=== PATIENT | female | born 1945 | race Caucasian/White ===

== ENCOUNTER → 2018-02-09 | Outpatient (CLI) | payer MEDICARE, OTHER | END | disposition home or self-care (01) | LOC: CFH 10:27 | PROVIDERS: ATTEND Nurse Practitioner Gerontology | DX: Z12.2 Encounter for screening for malignant neoplasm of respiratory organs (principal); I25.10 Atherosclerotic heart disease of native coronary artery without angina pectoris; J98.11 Atelectasis; F17.210 Nicotine dependence, cigarettes, uncomplicated | CPT/HCPCS: G0297 ==

== ENCOUNTER 2018-03-18 16:43 | Inpatient (IN) | payer MEDICARE ==
[~2018-03-18] VITALS: Ht 162.6 cm; Wt 55.0 kg
[2018-03-18] MEDS ORDERED: NITROGLYCERIN/D5W PMX 250 ML ONE (16:51)
[2018-03-18] MEDS ORDERED: NITROGLYCERIN/D5W PMX 250 ML IV PRN (17:00)
[2018-03-18 17:24] LABS: BASOPHILS # (AUTO) 0.02 x10^3/uL (0-0.1); BASOPHILS % (AUTO) 0 % (0-1); EOSINOPHILS # (AUTO) 0.08 x10^3/uL (0-0.4); EOSINOPHILS % (AUTO) 1 % (1-7); LYMPHOCYTES # (AUTO) 1.64 x10^3/uL (1-3.4); LYMPHOCYTES % (AUTO) 19 % (22-44); MD NO; MEAN CORPUSCULAR HEMOGLOBIN 31.5 pg (27.0-34.8); MEAN CORPUSCULAR HGB CONC 33.5 g/dL (32.4-35.8); MEAN CORPUSCULAR VOLUME 93.8 fL (80-100); MEAN PLATELET VOLUME 7.6 fL (7.4-10.4); MONOCYTES # (AUTO) 0.56 x10^3/uL (0.2-0.8); MONOCYTES % (AUTO) 6 % (2-9); NEUTROPHILS # (AUTO) 6.43 x10^3/uL (1.8-6.8); NEUTROPHILS % (AUTO) 74 % (42-75); PLATELET COUNT 271 x10^3/uL (130-400); RED BLOOD COUNT 3.97 x10^6/uL (3.82-5.3)
[2018-03-18] MEDS ORDERED: FUROSEMIDE 40 MG/4 ML IV ONE (17:30)
[2018-03-18 17:33] LABS: INTERNATIONAL NORMALIZED RATIO 1.04 (0.93-1.1); PROTHROMBIN TIME 10.7 Seconds (9.6-11.5)
[2018-03-18 17:37] LABS: ALANINE AMINOTRANSFERASE 28 U/L (12-78); ALBUMIN 3.5 g/dL (3.4-5.0); ANION GAP 8 mmol/L (5-15); CALCIUM 8.3 mg/dL (8.5-10.1); CHLORIDE 107 mmol/L (98-107); CREATININE 0.66 mg/dL (0.55-1.02)
[2018-03-18] MEDS ORDERED: FUROSEMIDE 40 MG/4 ML ONE (17:39)
[2018-03-18 17:41] LABS: ALKALINE PHOSPHATASE 76 U/L (45-117); BILIRUBIN,TOTAL 0.3 mg/dL (0.2-1.0); TOTAL PROTEIN 6.6 g/dL (6.4-8.2); TROPONIN I 0.041 ng/mL (0.000-0.045)
[2018-03-18] MEDS ORDERED: LOSA50TA6 PO (17:55)
[2018-03-18] MEDS ORDERED: DIAZ5TAB PO (17:55)
[2018-03-18] MEDS ORDERED: ACET325T14 PO (17:55)
[2018-03-18] MEDS ORDERED: HYDR-3237 PO (17:55)
[2018-03-18] MEDS ORDERED: hydrALAzine 20 MG/ML, 1ML IVPush PRN (19:00)
[2018-03-18] MEDS: NICOTINE 7 MG/24 HR PATCH.TD24 TD SCH (19:00)
[2018-03-18] MEDS ORDERED: ONDANSETRON ODT 4 MG PO PRN (19:00)
[2018-03-18] MEDS ORDERED: BISACODYL 10 MG SUPP PR PRN (19:00)
[2018-03-18] MEDS ORDERED: HEPARIN 5,000 UNITS/ML, 1ML SQ SCH (19:00)
[2018-03-18] MEDS ORDERED: POLYETHYLENE GLYCOL 17 GM PACKET PO PRN (19:00)
[2018-03-18] MEDS ORDERED: ACETAMINOPHEN 325 MG TABLET PO PRN (19:00)
[2018-03-18 21:52] VITALS: BP 137/83
[2018-03-18] MEDS: CARVEDILOL 6.25 MG TABLET PO SCH (22:25)
[2018-03-18] MEDS: DIAZEPAM 5 MG TABLET PO SCH (22:26)
[2018-03-18] MEDS: HYDROcodone/APAP 5/325 TABLET PO PRN (22:26)
[2018-03-18] MEDS: SODIUM CHLORIDE FLUSH 10ML SYR IVF SCH (22:26)
[2018-03-19 01:20] VITALS: BP 124/78
[2018-03-19] MEDS ORDERED: HEPARIN 25,000 UNITS/500ML PMX 500 ML IV PRN (02:00)
[2018-03-19] MEDS ORDERED: HEPARIN 5,000 UNITS/ML, 1ML IV ONE (02:00)
[2018-03-19] MEDS ORDERED: HEPARIN 5,000 UNITS/ML, 1ML IV PRN (02:00)
[2018-03-19 05:17] LABS: BASOPHILS # (AUTO) 0.05 x10^3/uL (0-0.1); BASOPHILS % (AUTO) 1 % (0-1); EOSINOPHILS # (AUTO) 0.06 x10^3/uL (0-0.4); EOSINOPHILS % (AUTO) 1 % (1-7); LYMPHOCYTES # (AUTO) 2.61 x10^3/uL (1-3.4); LYMPHOCYTES % (AUTO) 30 % (22-44); MD NO; MEAN CORPUSCULAR HEMOGLOBIN 31.2 pg (27.0-34.8); MEAN CORPUSCULAR HGB CONC 33.8 g/dL (32.4-35.8); MEAN CORPUSCULAR VOLUME 92.4 fL (80-100); MEAN PLATELET VOLUME 7.7 fL (7.4-10.4); MONOCYTES # (AUTO) 0.71 x10^3/uL (0.2-0.8); MONOCYTES % (AUTO) 8 % (2-9); NEUTROPHILS # (AUTO) 5.23 x10^3/uL (1.8-6.8); NEUTROPHILS % (AUTO) 60 % (42-75); PLATELET COUNT 271 x10^3/uL (130-400); RED BLOOD COUNT 4.07 x10^6/uL (3.82-5.3); RED CELL DISTRIBUTION WIDTH 13.9 % (9.6-15.2)
[2018-03-19 05:24] LABS: ALANINE AMINOTRANSFERASE 31 U/L (12-78); ALBUMIN 3.6 g/dL (3.4-5.0); ANION GAP 10 mmol/L (5-15); CALCIUM 8.5 mg/dL (8.5-10.1); CHLORIDE 103 mmol/L (98-107); CHOLESTEROL, TOTAL 125 mg/dL (140-239); CREATININE 0.67 mg/dL (0.55-1.02)
[2018-03-19 05:28] LABS: ALKALINE PHOSPHATASE 76 U/L (45-117); BILIRUBIN,TOTAL 0.6 mg/dL (0.2-1.0); CHOL/HDL RATIO 2.8; HDL CHOL % 36 % (28-40); HDL CHOLESTEROL (DIRECT) 45 mg/dL (40-60); LDL CHOLESTEROL,CALCULATED 66 mg/dL (54-169); LDL/HDL RATIO 1.5 (0.5-3.0); TOTAL PROTEIN 6.7 g/dL (6.4-8.2); TRIGLYCERIDES 70 mg/dL (50-200); VLDL CHOLESTEROL 14 mg/dL (0-25)
[2018-03-19 06:08] VITALS: BP 150/93
[2018-03-19] MEDS: CARVEDILOL 6.25 MG TABLET PO SCH ×3 (06:09→20:50)
[2018-03-19] MEDS: HYDROcodone/APAP 5/325 TABLET PO PRN ×2 (06:44→18:45)
[2018-03-19] MEDS ORDERED: ALBUTEROL/IPRATROPIUM 2.5MG/0.5MG, 3 ML NPPB SCH (07:00)
[2018-03-19 07:27] VITALS: BP 144/82
[2018-03-19] MEDS: SODIUM CHLORIDE FLUSH 10ML SYR IVF SCH ×2 (08:55→20:49)
[2018-03-19] MEDS: DIAZEPAM 5 MG TABLET PO SCH ×2 (08:55→20:49)
[2018-03-19] MEDS: SENNA/DOCUSATE TABLET PO SCH (08:55)
[2018-03-19] MEDS: FUROSEMIDE 20 MG/2 ML IV SCH ×2 (08:55→18:21)
[2018-03-19] MEDS: LISINOPRIL 5 MG TABLET PO SCH (08:55)
[2018-03-19] MEDS ORDERED: SODIUM CHLORIDE 0.9% 1,000 ML IV ONE (09:28)
[2018-03-19] MEDS: ASPIRIN 81 MG TABLET EC PO SCH (10:50)
[2018-03-19 13:27] VITALS: BP 123/81
[2018-03-19] MEDS ORDERED: FENTANYL PF 100 MCG/2ML ONE (14:26)
[2018-03-19] MEDS ORDERED: BIVALIRUDIN 250 MG ONE (14:27)
[2018-03-19] MEDS ORDERED: TICAGRELOR 90 MG TABLET ONE (14:27)
[2018-03-19] MEDS ORDERED: VERAPAMIL 2.5 MG/ML, 2ML ONE (14:27)
[2018-03-19] MEDS ORDERED: MIDAZOLAM 1 MG/ML, 5ML ONE (14:27)
[2018-03-19] MEDS ORDERED: HEPARIN 1,000 UNITS/ML, 10ML ONE (14:27)
[2018-03-19] MEDS: NICOTINE 7 MG/24 HR PATCH.TD24 TD SCH (18:21)
[2018-03-19 19:06] VITALS: BP 142/86
[2018-03-19] MEDS ORDERED: ATORVASTATIN 80 MG TABLET PO SCH (21:00)
[2018-03-20 01:50] VITALS: BP 116/72
[2018-03-20 05:01] LABS: ALBUMIN 3.5 g/dL (3.4-5.0); ANION GAP 11 mmol/L (5-15); CALCIUM 8.7 mg/dL (8.5-10.1); CHLORIDE 99 mmol/L (98-107)
[2018-03-20 05:04] LABS: ALANINE AMINOTRANSFERASE 25 U/L (12-78); ALKALINE PHOSPHATASE 69 U/L (45-117); BILIRUBIN,TOTAL 0.6 mg/dL (0.2-1.0); CREATININE 0.78 mg/dL (0.55-1.02); TOTAL PROTEIN 6.7 g/dL (6.4-8.2)
[2018-03-20 05:41] LABS: BASOPHILS # (AUTO) 0.13 x10^3/uL (0-0.1); BASOPHILS % (AUTO) 2 % (0-1); EOSINOPHILS # (AUTO) 0.05 x10^3/uL (0-0.4); EOSINOPHILS % (AUTO) 1 % (1-7); LYMPHOCYTES # (AUTO) 1.82 x10^3/uL (1-3.4); LYMPHOCYTES % (AUTO) 24 % (22-44); MD NO; MEAN CORPUSCULAR HEMOGLOBIN 31.2 pg (27.0-34.8); MEAN CORPUSCULAR HGB CONC 33.8 g/dL (32.4-35.8); MEAN CORPUSCULAR VOLUME 92.1 fL (80-100); MEAN PLATELET VOLUME 7.9 fL (7.4-10.4); MONOCYTES # (AUTO) 0.72 x10^3/uL (0.2-0.8); MONOCYTES % (AUTO) 9 % (2-9); NEUTROPHILS # (AUTO) 4.96 x10^3/uL (1.8-6.8); NEUTROPHILS % (AUTO) 65 % (42-75); PLATELET COUNT 271 x10^3/uL (130-400); RED BLOOD COUNT 4.04 x10^6/uL (3.82-5.3); RED CELL DISTRIBUTION WIDTH 13.8 % (9.6-15.2)
[2018-03-20] MEDS: ASPIRIN 81 MG TABLET EC PO SCH (05:58)
[2018-03-20] MEDS: HYDROcodone/APAP 5/325 TABLET PO PRN (05:58)
[2018-03-20 06:08] VITALS: BP 129/73
[2018-03-20 07:29] VITALS: BP 133/82
[2018-03-20] MEDS: LISINOPRIL 5 MG TABLET PO SCH (07:58)
[2018-03-20] MEDS: CARVEDILOL 6.25 MG TABLET PO SCH (07:58)
[2018-03-20] MEDS: FUROSEMIDE 20 MG/2 ML IV SCH (07:58)
[2018-03-20] MEDS: DIAZEPAM 5 MG TABLET PO SCH (07:58)
[2018-03-20 07:59] VITALS: BP 137/84
[2018-03-20] MEDS: SODIUM CHLORIDE FLUSH 10ML SYR IVF SCH (07:59)
[2018-03-20] MEDS: SENNA/DOCUSATE TABLET PO SCH (07:59)
[2018-03-20] MEDS ORDERED: CLOPIDOGREL 75 MG TABLET PO SCH (09:30)
[2018-03-20] MEDS ORDERED: CARV6.2512 PO (12:31)
[2018-03-20] MEDS ORDERED: LISI5TAB7 PO (12:31)
[2018-03-20] MEDS ORDERED: CLOP75TA PO (12:31)
[2018-03-20] MEDS ORDERED: FURO20TA3 PO (12:31)
[2018-03-20] MEDS ORDERED: ATOR-2 PO (12:31)
[2018-03-20] MEDS ORDERED: ASPI-621 PO (12:31)
== END 2018-03-20 13:49 | disposition home or self-care (01) | DRG 280 ==
LOC: MERGE 16:43 → EDBD 16:43 → ED 17:08 → EDIP 18:40 → 5SO 19:42 → DCLOUNGE 03-20 13:19
PROVIDERS: ADMIT Hospitalist; ATTEND Hospitalist
PROC: 4A023N7 Measurement of Cardiac Sampling and Pressure, Left Heart, Percutaneous Approach (ICD-10-PCS; principal; 2018-03-19)
PROC: B2111ZZ Fluoroscopy of Multiple Coronary Arteries using Low Osmolar Contrast (ICD-10-PCS; 2018-03-19)
PROC: B2151ZZ Fluoroscopy of Left Heart using Low Osmolar Contrast (ICD-10-PCS; 2018-03-19)
DX: I21.4 Non-ST elevation (NSTEMI) myocardial infarction (principal); J96.01 Acute respiratory failure with hypoxia; E87.2 Acidosis; I50.31 Acute diastolic (congestive) heart failure; E87.1 Hypo-osmolality and hyponatremia; J81.1 Chronic pulmonary edema; I16.9 Hypertensive crisis, unspecified; E78.5 Hyperlipidemia, unspecified; F17.210 Nicotine dependence, cigarettes, uncomplicated; G89.29 Other chronic pain; M54.9 Dorsalgia, unspecified; I11.0 Hypertensive heart disease with heart failure; I25.10 Atherosclerotic heart disease of native coronary artery without angina pectoris; I44.7 Left bundle-branch block, unspecified; Z82.49 Family history of ischemic heart disease and other diseases of the circulatory system; Z83.3 Family history of diabetes mellitus; Z85.3 Personal history of malignant neoplasm of breast; Z90.710 Acquired absence of both cervix and uterus
CPT/HCPCS: 36415; 36600; 71045; 80053; 80061; 82803; 83605; 83880; 84484; 85025; 85520; 85610; 85730; 87040; 93005; 93306; 93458; 94640; 99156; 99291; C1769; C1894; J0583; J1644; J1940; J2250; J3010; J7620; Q9967